=== PATIENT | male | born 1980 | race Caucasian/White ===

== ENCOUNTER 2023-06-14 09:33 | Outpatient (CLI) | payer OTHER ==
[2023-06-14 11:52] LABS: HGB - HEMOGLOBIN 14.5 g/dL (14.0-18.0); MEAN CORPUSCULAR HEMOGLOBIN 25.7 pg (27.0-31.0); MEAN CORPUSCULAR HGB CONC 30.9 g/dL (32.0-36.0); MEAN CORPUSCULAR VOLUME 83.2 fL (80.0-94.0); MEAN PLATELET VOLUME 9.7 fL (7.4-11.4); RED BLOOD COUNT 5.65 10^6/uL (4.70-6.10); RED CELL DISTRIBUTION WIDTH 14.5 % (12.0-15.0); WHITE BLOOD COUNT 8.5 x10^3/uL (4.8-10.8)
[2023-06-14 12:08] LABS: ALBUMIN 4.3 g/dL (3.2-5.5); ALBUMIN/GLOBULIN RATIO 1.3 (1.0-2.2); ALKALINE PHOSPHATASE 37 IU/L (42-121); ALT ALANINE AMINOTRANSFERASE 35 IU/L (10-60); AST ASPARTATE AMINOTRANSFERASE 19 IU/L (10-42); BUN - BLOOD UREA NITROGEN 17 mg/dL (6-20); CALCIUM 9.5 mg/dL (8.5-10.3); CARBON DIOXIDE - CO2 28 mmol/L (21-32); CHLORIDE 104 mmol/L (101-111); CHOL/HDL RATIO 3.3 (<5.0); CHOLESTEROL 202 mg/dL; CREATININE 0.8 mg/dL (0.6-1.3); GFR - MDRD 107 (>89); GLUCOSE 116 mg/dL (74-104); HDL CHOLESTEROL 62 mg/dL; LDL CHOLESTEROL,CALCULATED 124 mg/dL; POTASSIUM 4.1 mmol/L (3.5-4.5); SODIUM 137 mmol/L (135-145); TOTAL PROTEIN 7.5 g/dL (6.4-8.9); TRIGLYCERIDES 80 mg/dL (48-352); VLDL CHOLESTEROL 16 mg/dL
[2023-06-14 12:22] LABS: THYROID STIMULATING HORMONE 1.07 uIU/mL (0.34-5.60)
[2023-06-14 12:39] LABS: ESTIMATED AVERAGE GLUCOSE 134 mg/dL (70-100); HEMOGLOBIN A1c% 6.3 % (4.27-6.07)
== END 2023-06-14 09:34 | disposition home or self-care (01) ==
LOC: LAB.N 09:33
PROVIDERS: ATTEND Family Medicine
DX: E66.01 Morbid (severe) obesity due to excess calories (principal); F90.2 Attention-deficit hyperactivity disorder, combined type; I10 Essential (primary) hypertension
CPT/HCPCS: 36415; 80053; 80061; 83036; 83721; 84443; 85027

== ENCOUNTER 2023-08-05 14:14 | Outpatient (CLI) | payer OTHER ==
--- NOTE | 2023-08-05 15:05 | Sleep Patient Instructions ---
Sleep Center Visit Summary - Patient Visit Information Reason for Visit: Initial consultation - Patient Instructions Additional Instructions: You will continue with CPAP therapy with pressure set at 5-9 cmH2O. A prescription to set you up with a supplier will be completed once we have a copy of last sleep study. We encourage you to continue to try to lose weight. Please follow up with the sleep care office in 1 year. - Clinic Information Contact: [facility] [address] [place] [address] [email or web address] T: [phone]
--- NOTE | 2023-08-05 15:14 | SLEEP CARE CONSULTATION ---
Information from patient questionnaire entered by Blair Simmons. I have reviewed and concur with the information entered by Blair Simmons. This document represents the service I personally performed and the decisions made by me, Allyssa Farrell ARNP. History of Present Illness Service Date and Time: 08/05/2023 1414 Reason for Visit: New patient, Previously diagnosed sleep apnea, sleep apnea on CPAP therapy Chief Complaint: reports: Other (NO CURRENT SLEEP SPECIALIST) Date of Onset: 10+YRS Usual bedtime: 2300 Time it takes to fall asleep: NOT LONG Snores at night: Yes Observed to quit breathing while asleep: Yes Sleeps alone due to snoring: No Number of times waking at night: 0-1 Toss, Turn, or Twitch while sleeping: Yes Recalls having dreams: Yes Usually gets out of bed at: 0720 Feels refreshed in the morning: Yes Morning headache: No Sleepy or fatigued during the day: No Ever fallen asleep while driving: No Takes day naps: No Dreams during day naps: No Prior sleep studies: Yes Year and Where: 2018 Additional HPI information: JEROME MONTOYA was previously diagnosed to have unknown, AHI unknown, sleep apnea-hypopnea syndrome and comes in today to establish care for CPAP therapy. - Parasomnia Symptoms Ever been unable to move upon waking from sleep: No Walks in sleep: No Ever felt weak in the knees when startled or emotional: No Bothered by creepy, crawly, restless sensations in legs: No Problems with memory or concentration: Yes CPAP Compliance Data - Data Reviewed with Patient Average duration of nightly device use: 7 hours 29 minutes Compliance rate %: 100 (90/90 days used) Current pressure setting (cmH2O): 5-9 Average residual AHI: 1.3 Central apnea: 0.1 Obstructive apnea: 0.3 Hypopnea: 0.9 Average large leak: 3.8 L/min Compliance data discussion: He has a ResMed Airsense 10. He uses a full face mask. He is buying his supplies on his own. Subjective Patient concerns: reports: air blowing in eyes (adjustments done), mask leak noise (just needs adjustments), dry mouth, nose, throat (sometimes). denies: aerophagia, mask discomfort, condensation in mask/hose, nasal congestion, epistaxis Observed to snore while using device: No Current pressure setting perceived as: comfortable On therapy, patient: reports: sleeping better, awakening more refreshed, being more awake and alert during the day, more rested overall. 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 Patient is Single and lives in . Have you smoked in the past 12 months: No Alcohol use: No Caffeine use: No Family History Family history of sleep disordered breathing: Yes Family Hx Sleep Apnea: Mother: Snoring, Father: Snoring, Sleep apnea - Untreated, Sibling: Snoring, Sleep apnea - Treated Allergies and Home Medications Known drug allergies: Yes (PCN) Drug allergies reviewed: Yes Home medication list reviewed: Yes (as listed) Allergy and home medication list: Allergies Penicillins Allergy (Verified 08/05/23 14:36) Home Medications Cholecalciferol [Vitamin D3] See Rx Instructions .ROUTE .COMPLEX 08/05/23 [History] Fluticasone [Flonase] See Rx Instructions .ROUTE .COMPLEX 08/05/23 [History] Lisinopril/Hydrochlorothiazide [Zestoretic 20-12.5 mg Tablet] See Rx Instructions .ROUTE .COMPLEX 08/05/23 [History] buPROPion HCL [Wellbutrin Xl] See Rx Instructions .ROUTE .COMPLEX 08/05/23 [History] Review of Systems Weight gain over past 5 years: 60 Weight loss over past 5 years: 40-50 Cardiovascular: reports: high blood pressure Respiratory: reports: shortness of breath Gastrointestinal: reports: heartburn Psychiatric: reports: Attention Deficit Hyperactivity, anxiety, depression Musculoskeletal: reports: back pain Immunologic: reports: sneezing Physical Exam Vital signs obtained and entered by: BLAIR Hanley MA Blood Pressure: 144/81 (LEFT ARM) Cuff size: long Heart Rate: 95 O2 Saturation: 94 Height: 5 ft 10 in Weight: 379 lb 3.2 oz Body Mass Index: 54.3 BMI Classification: Morbidly Obese Neck circumference: 20.5 Heart: regular rate and rhythm Lungs: clear bilaterally Impression and Plan 1. Obstructive Sleep Apnea-Hypopnea Syndrome, unknown, with good treatment compliance and good apnea control. On CPAP therapy, the patient has better sleep quality and is more rested overall. He last had a sleep study done in 2019 in [place] but has not had a sleep provider since that time. He does not have a copy of his sleep study and we have not yet received any response from our request for records. If we are able to get a copy of sleep study, then I will write a transfer of care and supply prescription. If unable to get copy of study, we will have him do another PSG to verify diagnosis and severity. He feels it would be best to do this study in the sleep lab with a sleep aide because he is a very restless sleeper and may not be able to keep leads on at home. We will see what the insurance will agree to if we need to have him repeat the study. As long as we get records, the prescription will be sent to DME choice and we will follow up with him in a year. Patient's apnea severity and rationale for treatment to reduce apnea, improve sleep quality and reduce cardiovascular and cerebrovascular events was reviewed. I also reviewed the benefit of consistent device use of CPAP for hypertension, depression/anxiety. 2. Obesity, unspecified. Currently patients BMI is 54.3. Obesity increases the risk of apnea, CPAP pressure requirements and overall health risks especially cardiovascular and diabetes. Thus patient is advised to lose weight. * Continue auto CPAP pressure at 5-9 cmH2O * Try to obtain copy of last sleep study done in 2019, if not able to obtain will repeat PSG * Update supply prescription after get copy of sleep study * Notify me if snoring with mask or feeling that the pressure is too much or too little * Attempt to lose weight * Call this office if any problems using CPAP * Return for follow up in 1 year or after sleep study, or sooner if concerns arise Counseling Topics: Spare mask, Weight loss health impact Follow up with Sleep Care in: 1 year (or sooner if needs repeat sleep study) Visit Type: In Office Time Spent with Patient (minutes): 38 Provider Statement: I spent 100% of the Face to Face Visit with the patient with greater than 50% spent counseling the patient and coordination of care.
[2023-08-05 15:33] VITALS: BP 144/81; O2SAT 94
== END 2023-08-05 14:15 | disposition home or self-care (01) ==
LOC: SC 14:14
PROVIDERS: ATTEND Nurse Practitioner Family
DX: G47.33 Obstructive sleep apnea (adult) (pediatric) (principal); I10 Essential (primary) hypertension; E66.01 Morbid (severe) obesity due to excess calories; Z68.43 Body mass index [BMI] 50.0-59.9, adult
CPT/HCPCS: 99203; 99212